=== PATIENT | male | born 2000 | race Hispanic/Latino ===

== ENCOUNTER 2025-03-05 18:03 | Emergency (ER) | payer SELFPAY ==
[~2025-03-05] VITALS: Ht 172.7 cm; Wt 108.9 kg
--- NOTE | 2025-03-05 18:17 | ERN ---
ED Note History of Present Illness Stated Complaint: N/V, FEVER Chief Complaint: Nausea,Vomiting,Diarrhea Time Seen by MD: 18:06 Dictation: PATIENT IS A 24-YEAR-OLD MALE COMING IN TODAY WITH FEVER CHILLS GENERALIZED BODY ACHES DARK URINE AND MUSCLE PAIN FOR THE LAST WEEK. 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 ALSO HE STATES HE HAS NOT BEEN ABLE TO KEEP FOOD OR FLUIDS DOWN FOR THE LAST TWO DAYS. NO DIARRHEA. NO PRIMARY CARE DOCTOR Allergies: Coded Allergies: No Known Allergies (Unverified Allergy, Unknown, 03/05/25) Past Medical History Past Medical History: Other Additional Past Medical Hx: GASTRITIS Surgical History: None RN Note Reviewed/Agreed w/PFSH: Yes Review of System Dictation CONSTITUTIONAL: NEGATIVE EXCEPT FOR HPI FEVER CHILLS HEAD/FACE: NEGATIVE EXCEPT FOR HPI EENT: NEGATIVE EXCEPT FOR HPI RESPIRATORY: NEGATIVE EXCEPT FOR HPI GASTROINTESTINAL/ABDOMINAL: NEGATIVE EXCEPT FOR HPI NAUSEA VOMITING GENITOURINARY: NEGATIVE EXCEPT FOR HPI DARK URINE MUSCULOSKELETAL: NEGATIVE EXCEPT FOR HPI MUSCLE CRAMPS INTEGUMENTARY: NEGATIVE EXCEPT FOR HPI NEUROLOGICAL/PSYCH: NEGATIVE EXCEPT FOR HPI HEMATOLOGIC/LYMPHATIC: NEGATIVE EXCEPT FOR HPI ALL SYSTEMS NEGATIVE, EXCEPT NOTED ABOVE. 13 POINT REVIEW OF SYSTEMS ASSESSED AND ALL NEGATIVE EXCEPT FOR ABOVE. Initial Vital Sign VS Vital Signs Date Time Temp Pulse Resp B/P (MAP) Pulse Ox O2 Delivery O2 Flow Rate FiO2 03/05/25 18:05 103.3 125 20 125/68 96 Room Air 0 03/05/25 20:02 21 Physical Exam Dictation VITAL SIGNS REVIEWED GENERAL APPEARANCE: ALERT, ORIENTED X 3, MODERATE ACUTE DISTRESS, WELL DEVELOPED, NOURISHED. HEAD AND FACE: NON-TRAUMATIC. EYES: PERRL, PINK CONJUNCTIVAS, EYELID NO TRAUMA, ANTERIOR CHAMBER WITH ARCUS SENILIS. EARS: PINNAS INTACT AND NO SIGNS OF TRAUMA OR ERYTHEMA EAR CANALS CLEAR AND NO DISCHARGE TM NO ERYTHEMA NOSE: NO DISCHARGE, NO BLEEDING. OROPHARYNX: MOUTH NORMAL, TONGUE PINK, PHARYNX CLEAR,NO ERYTHEMA, TONSILS NO EXUDATES, NO ABSCESSES NOTED, MUCOUS MEMBRANE MOIST NECK: SUPPLE, NON-TENDER, NO THYROMEGALY, NO MASSES, NO JVD, NO BRUITS BREAST:DEFERRED CHEST:NO TENDERNESS, NO CREPITUS, NO PARADOXICAL MOVEMENT, NO RETRACTIONS LUNGS:CLEAR, WELL-VENTILATED, SYMMETRIC, NO RALES, NO WHEEZING, NO RHONCHI, NO STRIDOR, GOOD BREATH SOUNDS BILATERALLY HEART: TACHYCARDIC, NO MURMUR, NO GALLOPS VASCULAR: NO PERIPHERAL EDEMA, ABDOMEN: SOFT, POSITIVE BOWEL SOUNDS, NONDISTENDED, NO GUARDING, NONTENDER, NO REBOUND, NO MASSES NO HEPATOMEGALY, NO SPLENOMEGALY, NO SWIFT'S SIGN, NO HERNIAS. NO FOCAL TENDERNESS RECTAL: DEFERRED GENITAL: DEFERRED NEUROLOGICAL: NORMAL SPEECH, MOTOR FUNCTION INTACT, SENSORY FUNCTION INTACT MUSCULOSKELETAL: NECK NONTENDER, FULL RANGE OF MOTION, BACK NONTENDER, FULL RANGE OF MOTION, EXTREMITIES: NONTENDER, FULL RANGE OF MOTION SKIN: COLOR PINK, DRY, NO TURGOR, NO RASH, NO LACERATIONS, NO ABRASIONS, NO CONTUSIONS. LYMPHATIC: DEFERRED Results (Laboratory/Radiology) Laboratory/Radiology Laboratory Tests Test 03/05/25 18:14 03/05/25 18:44 03/05/25 19:00 White Blood Count 13.6 K/uL (4.8-10.8) H Red Blood Count 4.73 MIL/uL (4.50-6.20) Hemoglobin 13.4 g/dL (14.0-18.0) L Hematocrit 37.4 % (42-54) L Mean Corpuscular Volume 79.1 fL (79-99) Mean Corpuscular Hemoglobin 28.3 pg (27.0-33.0) Mean Corpuscular Hemoglobin Concent 35.8 g/dL (32.0-36.0) Red Cell Distribution Width 13.2 % (11.0-15.5) Platelet Count 246 K/uL (130-400) Mean Platelet Volume 11.6 fL (7.5-10.5) H Immature Granulocyte % (Auto) 0.4 % (0-1) Neutrophils (%) (Auto) 77.4 % (40.0-77.0) H Lymphocytes (%) (Auto) 18.7 % (21.0-51.0) L Monocytes (%) (Auto) 3.2 % (3.0-13.0) Eosinophils (%) (Auto) 0.1 % (0.0-8.0) Basophils (%) (Auto) 0.2 % (0.0-5.0) Neutrophils # (Auto) 10.5 K/uL (1.8-7.7) H Lymphocytes # (Auto) 2.5 K/uL (1.0-4.8) Monocytes # (Auto) 0.4 K/uL (0.1-1.0) Eosinophils # (Auto) 0.01 K/uL (0.00-0.70) Basophils # (Auto) 0.03 K/uL (0.00-0.20) Absolute Immature Granulocyte (auto 0.06 K/uL (0-1) Nucleated Red Blood Cells 0.0 % (0.0-0.19) Sodium Level 130 mmol/L (136-145) L Potassium Level 3.0 mmol/L (3.5-5.1) *L Chloride Level 92 mmol/L (101-111) L Carbon Dioxide Level 29 mmol/L (21-32) Blood Urea Nitrogen 12 mg/dL (7-18) Creatinine 1.1 mg/dL (0.5-1.3) Glomerular Filtration Rate Calc 95 mL/min (>90) Random Glucose 162 mg/dL (70-105) H Lactic Acid Level 1.7 mmol/L (0.8-2.5) Total Calcium 8.7 mg/dL (8.5-10.1) Total Creatine Kinase 636 U/L (21-232) *H Influenza Type A Antigen Negative For Type A Influenza Type B Antigen Negative For Type B SARS-CoV-2 Antigen (Rapid) PRESUMPTIVE NEGATIVE Group A Streptococcus Rapid positive (NEGATIVE) *A Urine Color YELLOW (YELLOW) Urine Appearance CLOUDY (CLEAR) H Urine pH 6.0 (5.0-8.0) Urine Specific [place] 1.029 (1.001-1.031) Urine Protein 100 mg/dL (NEGATIVE) H Urine Glucose (UA) NEGATIVE mg/dL (NEGATIVE) Urine Ketones NEGATIVE mg/dL (NEGATIVE) Urine Occult Blood NEGATIVE (NEGATIVE) Urine Nitrate NEGATIVE (NEGATIVE) Urine Bilirubin NEGATIVE mg/dL (NEGATIVE) Urine Urobilinogen >=8.0 mg/dL (0.2-1.0) H Urine Leukocyte Esterase NEGATIVE Bridgette/uL Urine RBC 2-5 /HPF (0-1) H Urine WBC 11-25 /HPF (0-1) H Urine Squamous Epithelial Cells RARE /HPF (0-2) Urine Bacteria RARE /HPF (None Seen) Urine Opiates Screen NEGATIVE (NEGATIVE) Urine Barbiturates Screen NEGATIVE (NEGATIVE) Urine Phencyclidine Screen NEGATIVE (NEGATIVE) Urine Amphetamines Screen NEGATIVE (NEGATIVE) Urine Benzodiazepines Screen NEGATIVE (NEGATIVE) Urine Cocaine Screen NEGATIVE (NEGATIVE) Urine Marijuana (THC) Screen POSITIVE (NEGATIVE) H 1940/CHEST X-RAY NEGATIVE Labs Reviewed?: Yes ED Course ED Course Orders Procedure Category Date Status Time Cbc With Differential LAB 03/05/25 Complete 18:12 Blood Cult SERGO 03/05/25 In Process 18:12 Urinalysis Profile LAB 03/05/25 Complete 18:12 0.9%Nacl 1000ml (Ns PHA 03/05/25 In Process 1000ml) 18:30 Creatine Kinase, Total LAB 03/05/25 Complete 18:12 Lactic Acid LAB 03/05/25 Complete 18:12 Basic Metabolic Panel LAB 03/05/25 Complete 18:12 Drug Screen Urine LAB 03/05/25 Complete 18:12 Covid19 (Sars Antigen LAB 03/05/25 Complete Rapid) 18:13 Influenza Type A & B, LAB 03/05/25 Complete Rapid 18:13 Rapid (Group A Strep) LAB 03/05/25 Complete 18:13 Ketorolac PHA 03/05/25 In Process Tromethamine 30mg/Ml 18:30 Acetaminophen 500mg PHA 03/05/25 In Process Tab (Tylenol 500mg T 18:30 Chest 1vw RAD 03/05/25 Taken 18:17 Potassium Bicarb/Cit PHA 03/05/25 In Process Ac 25meq (K-Lyte Ta 19:30 Ondansetron 4mg Inj PHA 03/05/25 In Process (Zofran 4mg Inj) 19:30 Culture Urine SERGO 03/05/25 Logged 19:47 Ceftriaxone 1g Vial PHA 03/05/25 Complete (Rocephine 1g Inj) 20:30 Current Medications Medications (Trade) Dose Ordered Sig/Pallavi Route PRN Reason Start Time Stop Time Status Last Admin Dose Admin Acetaminophen (TYLenol 500MG TAB) 1,000 mg ONCE PO 03/05/25 18:30 03/05/25 22:30 03/05/25 18:30 Ceftriaxone Sodium (ROCEphine 1G INJ) 1 gm ONCE ONCE IVP 03/05/25 20:30 03/05/25 20:31 DC 03/05/25 20:36 Ketorolac Tromethamine (toRADol) 30 mg ONCE IVP 03/05/25 18:30 03/05/25 22:30 03/05/25 18:31 Ondansetron HCl (zoFRAN 4MG INJ) 4 mg ONCE IVP 03/05/25 19:30 03/05/25 23:30 03/05/25 19:50 Potassium Bicarbonate (K-Lyte Tablet Eff 25 Meq Tablet.eff) 50 meq ONCE PO 03/05/25 19:30 03/05/25 23:30 03/05/25 20:08 Sodium Chloride 3,267 ml @ 1,089 mls/hr ONCE IV 03/05/25 18:30 03/05/25 22:30 03/05/25 18:31 Vital Signs Date Time Temp Pulse Resp B/P (MAP) Pulse Ox O2 Delivery O2 Flow Rate FiO2 03/05/25 20:02 93 14 96/52 96 Room Air* 0 21 03/05/25 18:30 103.3 03/05/25 18:05 103.3 125 20 125/68 96 Room Air 0 2039/SPOKE WITH PATIENT IN HIS GIRLFRIEND AT LENGTH REGARDING CLINICAL FINDINGS. HE HAS A AN AWARE THAT HE IS IT NEW ONSET DIABETIC, STREP THROAT, ELEVATED CK LEVEL. DEHYDRATED. FINALLY HE WAS TOLD THAT HE HAD THC IN HIS SYSTEM ON THE DRUG SCREEN. HE TOLD ME THAT HE SMOKES A LOT OF MARIJUANA. I ADVISED HIM THE PART OF THIS COULD BE CANNABIS ABUSE SYNDROME AND THAT HE WOULD NEED TO CURTAIL THIS AND IF IT CONTINUED, I WOULD BE PRESCRIBING WARM SHOWERS ALONG WITH ZOFRAN. ADDITIONALLY HE WAS GIVEN A LIST OF LOCAL PRIMARY CARE DOCTORS TO FOLLOW UP OUTPATIENT FOR MANAGEMENT OF HIS DIABETES. ALL QUESTIONS ANSWERED Medical Decision Making MDM MDM: DIFFERENTIAL DIAGNOSIS: SEPSIS/PNEUMONIA/BRONCHITIS/URINARY TRACT INFECTION/DRUG ABUSE/ELECTROLYTE IMBALANCE/DEHYDRATION/UTI/COVID/INFLUENZA/STREP RATIONALE: TESTS CONSIDERED AND ORDERED SECONDARY TO SHARED DECISION MAKING INCLUDE: RADIOLOGY/LABS/ PREVIOUS OUTSIDE RECORDS REVIEWED: OLD ER VISITS. RISK OF COMPLICATION AND/OR MORBIDITY OR MORTALITY OF PATIENT MANAGEMENT: NONE MEDICATIONS-PER MEDICATION RECONCILIATION NEED FOR HOSPITALIZATION: PATIENT DOES NOT MEET CRITERIA FOR HOSPITALIZATION. NO NEED FOR EMERGENCY MAJOR/MINOR SURGERY: NO THERE ARE NO SOCIAL CONCERNS WITH THIS PATIENT. PRESCRIPTION DRUG MANAGEMENT AUGMENTIN/ZOFRAN PRESCRIPTIONS WILL INCLUDE SYMPTOMATIC CARE PATIENT'S PRIOR EXTERNAL MEDICAL RECORDS FROM OTHER ER VISITS WERE REVIEWED BY ME INDICATED. PRIOR TESTING AND RESULTS FROM PREVIOUS VISITS WERE REVIEWED. PRIOR TESTS WERE TAKEN INTO ACCOUNT WITH MEDICAL DECISION MAKING AND RESOURCE UTILIZATION, INDEPENDENT HISTORIAN/HISTORIANS WERE USED TO OBTAIN COMPLETE MEDICAL HISTORY. I INDEPENDENTLY INTERPRETED THE TEST THAT WERE PERFORMED, RESULTS WERE REVIEWED BY ME AND CONSIDERED FINDINGS ON RADIOLOGY IF ORDERED. MEDICAL MANAGEMENT AND EXAMINATION INTERPRETATION DISCUSSIONS WERE HAD BY ME W ITH OTHER QUALIFIED HEALTHCARE PROFESSIONALS INDICATED FOR THE PATIENT'S CARE. DX & DISP Disposition: Discharge Departure Impression: Primary Impression: Acute streptococcal tonsillitis Additional Impressions: Hyponatremia, Hypokalemia, Elevated CK-MB level, New onset type 2 diabetes mellitus, Cannabis hyperemesis syndrome concurrent with and due to cannabis abuse Condition: Stable Scripts Amoxicillin/Potassium Clav (Amox Tr-K Clv 875-125 mg Tab) 875 Mg-125 Mg Tablet 1 EACH PO BID for 7 Days, #14 TAB 0 Refills Prov: ROBERT EID WILD [employer]YSTER HARVESTER 03/05/25 Ondansetron (Ondansetron Odt) 4 Mg Tab.rapdis 4 MG PO Q6HPRN PRN for nausea, #16 TAB 0 Refills Prov: ROBERT EID WILD OYSTER HARVESTER 03/05/25 Additional Instructions: FOLLOW-UP WITH PRIMARY CARE PROVIDER IN 1 TO 2 DAYS. TAKE MEDICATIONS DIRECTED HERE IN THE EMERGENCY ROOM. OKAY TO CONTINUE HOME MEDICATIONS UNLESS OTHERWISE DISCUSSED DURING YOUR VISIT IN THE EMERGENCY ROOM TODAY. RETURN TO YOUR NEAREST EMERGENCY ROOM IF SYMPTOMS WORSEN OR IF THERE IS NO IMPROVEMENT. CALL 911 IF YOU NEED IMMEDIATE ASSISTANCE. TAKE TYLENOL OR MOTRIN [id number] NEEDED AND IF NO CONTRAINDICATIONS ARE PRESENT. INCREASE ORAL HYDRATION. A WOUND CULTURE OR URINE CULTURE WAS ORDERED HERE IN THE EMERGENCY ROOM DEPARTMENT PLEASE FOLLOW-UP WITH PRIMARY CARE PROVIDER AND ADVISE THEM TO GET REPEAT PORTS FROM OUR FACILITY. IF YOU HAD ANY DENNISE WRAP/SPLINTS THAT WERE APPLIED HERE, PLEASE DO NOT REMOVE THEM UNTIL YOU SEE YOUR PRIMARY CARE OR SPECIALTY. SIPS OF GATORADE OR POWERADE EVERY 15-20 MINUTES WHILE AWAKE FOR THE NEXT TWO DAYS. TAKE AUGMENTIN DIRECTED UNTIL GONE. STRONGLY SUGGEST STOPPING MARIJUANA USE OR RISK CONTINUED NAUSEA VOMITING. SUGGEST WARM SHOWERS IF YOU CONTINUE VOMITING BESIDES THE ZOFRAN. FOLLOW UP WITH YOUR DOCTOR IN THE NEXT 1-2 DAYS FROM THE LIST PROVIDED YOU FOR THE CONTROL OF YOUR DIABETES Referrals: SELF,REFERRAL (PCP) Time of Disposition: 20:45 I have reviewed the case, and I agree with, Diagnosis and Plan ROBERT EID NP Mar 05, 2025 18:17
[2025-03-05 18:23] LABS: BASOPHILS # (AUTO) 0.03 K/uL (0.00-0.20); BASOPHILS % (AUTO) 0.2 % (0.0-5.0); EOSINOPHILS # (AUTO) 0.01 K/uL (0.00-0.70); EOSINOPHILS % (AUTO) 0.1 % (0.0-8.0); HEMATOCRIT 37.4 % (42-54); IMMATURE GRANULOCYTE ABSOLUTE 0.06 K/uL (0-1); LYMPHOCYTES # (AUTO) 2.5 K/uL (1.0-4.8); LYMPHOCYTES % (AUTO) 18.7 % (21.0-51.0); MEAN CORPUSCULAR HEMOGLOBIN 28.3 pg (27.0-33.0); MEAN CORPUSCULAR HGB CONC 35.8 g/dL (32.0-36.0); MEAN CORPUSCULAR VOLUME 79.1 fL (79-99); MONOCYTES # (AUTO) 0.4 K/uL (0.1-1.0); MONOCYTES % (AUTO) 3.2 % (3.0-13.0); NEUTROPHILS # (AUTO) 10.5 K/uL (1.8-7.7); NEUTROPHILS % (AUTO) 77.4 % (40.0-77.0); PLATELET COUNT (AUTO) 246 K/uL (130-400); RED BLOOD CELL COUNT(AUTO) 4.73 MIL/uL (4.50-6.20); RED CELL DISTRIBUTION WIDTH 13.2 % (11.0-15.5); WHITE BLOOD COUNT (AUTO) 13.6 K/uL (4.8-10.8)
[2025-03-05] MEDS: acetaMINOPHEN 500 MG TABLET PO SCH (18:30)
[2025-03-05] MEDS: 0.9%NACL 1000ML 3,267 ML IV SCH (18:31)
[2025-03-05] MEDS: ketOROlac 30MG VIAL (30MG/ML) IVP SCH (18:31)
[2025-03-05 18:50] LABS: CREATININE 1.1 mg/dL (0.5-1.3)
[2025-03-05 19:33] LABS: APPEARANCE,URINE CLOUDY (CLEAR); BILIRUBIN,URINE NEGATIVE (NEGATIVE); COLOR,URINE YELLOW (YELLOW); GLUCOSE, URINE (UA) NEGATIVE (NEGATIVE); KETONES,URINE NEGATIVE (NEGATIVE); LEUKOCYTE ESTERASE ,URINE NEGATIVE Leu/uL (NEGATIVE); NITRATE,URINE NEGATIVE (NEGATIVE); OCCULT BLOOD,URINE NEGATIVE (NEGATIVE); PROTEIN,URINE 100 mg/dL (NEGATIVE); UROBILINOGEN,URINE >=8.0 mg/dL (0.2-1.0)
[2025-03-05 19:41] LABS: AMPHET/METH SCREEN,URINE NEGATIVE (NEGATIVE); BARBITURATE SCREEN, URINE NEGATIVE (NEGATIVE); BENZODIAZEPINES SCREEN,URINE NEGATIVE (NEGATIVE); CANNABINOID SCREEN,URINE POSITIVE (NEGATIVE); COCAINE SCREEN,URINE NEGATIVE (NEGATIVE); OPIATE SCREEN,URINE NEGATIVE (NEGATIVE); PHENCYCLIDINE SCREEN,URINE NEGATIVE (NEGATIVE)
[2025-03-05 19:42] LABS: ADD UA MICROSCOPIC YES
[2025-03-05 19:47] LABS: BACTERIA,URINE RARE /HPF (None Seen); MUCUS,URINE FEW LPF (None Seen); SQUAMOUS EPITHELIAL CELL,UR RARE /HPF (0-2)
[2025-03-05] MEDS: ondanSETRON 4MG INJ IVP SCH (19:50)
[2025-03-05] MEDS: PoTASSium BIcarbonate/CIT AC 25 MEQ TABLET.EFF PO SCH (20:08)
[2025-03-05 20:18] LABS: COVID19 (SARS ANTIGEN RAPID) PRESUMPTIVE NEGATIVE (NEGATIVE); INFLUENZA TYPE A Negative For Type A (NEGATIVE); INFLUENZA TYPE B Negative For Type B (NEGATIVE)
[2025-03-05 20:21] LABS: RAPID GROUP A STREP positive (NEGATIVE)
[2025-03-05] MEDS: cefTRIAXone 1G VIAL IVP ONE (20:36)
[2025-03-05] MEDS ORDERED: ONDA-243 PO (20:46)
[2025-03-05] MEDS ORDERED: AMOX1TAB16 PO (20:46)
[2025-03-05 20:59] VITALS: BP 110/50; PULSE 81; RESP 17; TEMP 98; O2SAT 98
[2025-03-05 21:00] VITALS: TEMP 98
--- NOTE | 2025-03-06 01:57 | HMCIMG ---
EXAM: CR Chest, 1 view CLINICAL HISTORY: Shortness of breath. Cough. COMPARISON: None provided. FINDINGS: The lungs show no infiltrates or other acute findings. No pleural effusion or pneumothorax. The cardiomediastinal silhouette is within normal limits. No acute osseous abnormality. IMPRESSION: No acute cardiopulmonary process is evident. /Herrin
== END 2025-03-05 21:06 | disposition home or self-care (01) ==
LOC: EDH 18:03
DX: J03.00 Acute streptococcal tonsillitis, unspecified (principal); E87.1 Hypo-osmolality and hyponatremia; E87.6 Hypokalemia; F12.10 Cannabis abuse, uncomplicated; R11.2 Nausea with vomiting, unspecified; E11.9 Type 2 diabetes mellitus without complications; R74.8 Abnormal levels of other serum enzymes; Z20.822 Contact with and (suspected) exposure to COVID-19
CPT/HCPCS: 99284; 96365; 96361; 96375; 71045; 87426; 82550; 80048; 80305; 85025; 87040 ×2; 87086; 87880; 87804 ×2; 83605; 36415; 81001; J1885; J7030; J0696; J2405